=== PATIENT | male | born 1980 | race Caucasian/White ===

== ENCOUNTER 2021-04-30 09:22 | Emergency (ER) | payer OTHER, SELFPAY ==
[2021-04-30 09:35] VITALS: BP 146/89; PULSE 73; RESP 16; TEMP 36.6; O2SAT 98; BMI 35.2
--- NOTE | 2021-04-30 09:56 | XR_ITS ---
WS: [id number] PORTABLE CHEST HISTORY: chest pain COMPARISON: 02/20/2017 Lungs are clear and well expanded. No pleural effusion or pneumothorax. Cardiac size: Normal. Mediastinum/Aorta: Normal mediastinum. No osseous abnormality seen. XR/XR chest 1V portable [id number] IMPRESSION: Unremarkable portable chest.
--- NOTE | 2021-04-30 09:57 | ECG_ITS ---
[facility] Test Date: 2021-04-30 Pat Name: Esvin Baires Department: Room: Gender: Male Gas Prover: : 1980 Requested By: Ricardo Kim Order Number: [id number] Stefany MD: Shay Ruvalcaba M.D. Measurements Intervals [place] Rate: 72 P: 44 SD: 171 QRS: 54 QRSD: 90 T: 33 QT: 376 QTc: 414 Interpretive Statements SINUS RHYTHM No previous ECG available for comparison Electronically Signed On 04-30-2021 14:23:49 CDT by Shay Ruvalcaba M.D. [id number]
--- NOTE | 2021-04-30 10:03 | CT_ITS ---
WS: [id number] CT CHEST ANGIOGRAPHY WITH REFORMATS HISTORY: Chest pain and dyspnea for 3 days. TECHNIQUE: Contiguous axial images are obtained through the chest during arterial injection of intrav enous contrast. Images are reconstructed to evaluate the pulmonary arteries. MIP imaging also reviewe d. All CT scans at [facility] use at least one of these dose optimization techniques: automat ed exposure control; mA and/or kV adjustment per patient size (includes targeted exams where dose is matched to clinical indication); or iterative reconstruction. CONTRAST: Omnipaque 300; 78 mL IV. DLP: 615.51 mGy.cm COMPARISON: None available. Limited opacification of the pulmonary arteries. Streak artifact through the pulmonary arteries but n o filling defects are apparent. No RIGHT heart strain or pulmonary enlargement. Normal aorta. Normal size heart. No pericardial or pleural effusions. No adenopathy. No pneumonia or nodules. No chest wall abnormalities. No hiatal hernia. Hepatic steatosis. The entire liver is not included. N o adrenal mass. Cholelithiasis without evidence for acute cholecystitis. No bone destruction. CT/CT angio chest PE protcl [id number] IMPRESSION: 1. No pulmonary embolism. 2. No RIGHT heart strain. 3. Cholelithiasis without acute cholecystitis or bile duct dilatation. 4. No pneumonia.
--- NOTE | 2021-04-30 10:03 | USCV_ITS ---
Dequan, Esvin Age: 40 Gender: M : 1980 Exam Date: 04/30/2021 10:48 Ordering Phys: Ricardo Esparza DO Technologist: Exam Location: [facility] [place] Indication: LEG PAIN,, CHEST PAIN PROCEDURES: On the left side, the common femoral, superficial femoral, profunda femoral, popliteal, posterior tibial, greater saphenous veins, and the peroneal trunk were identified and interrogated in the standard fashion. FINDINGS: Normal 2-D Doppler and augmentation and compressibility throughout the left lower extremity venous structures. Additional imaging through the proximal calf veins also reveals no thrombus. Limited evaluation of the greater saphenous vein is patent with no thrombus. CONCLUSIONS No DVT left lower extremity. Dr. Marry Thompson DO (Electronically Signed) Final Date: 30 April 2021 11:58 S
--- NOTE | 2021-04-30 10:04 | W.ED.CHESTPA ---
HPI - Chest Pain General: Chief Complaint: Chest Pain Stated Complaint: SOB Time Seen by Provider: 04/30/21 09:27 History of Present Illness: HPI narrative: 40-year-old male presents emergency room complaining of intermittent shortness of breath chest pain and diaphoresis last several days occurs when he exerts himself when he rests its better. He is also noticed some increasing swelling will the last few days as well in his left lower leg which is also new for him. 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 He denies any history heart disease or diabetes. He is not had any fever sweats chills or any other symptoms. MD complaint: chest pain Onset (ago): day(s) Timing of current episode: constant Prior episodes: No Onset: during exertion Pain location: substernal Severity: mild Relieving factors: rest Exacerbating factors: exertion Context: recent immobilization and recent travel Associated symptoms: Reports diaphoresis, dyspnea and leg edema; Deny abdominal pain, fever(s), nausea, palpitations, sense of impending doom, syncope or vomiting Treatment prior to arrival: none Review of Systems Const: Reports: diaphoresis; Denies: fever(s) ENMT: Denies: throat pain, ear or mastoid pain, nasal discharge or nasal congestion Card: Denies: palpitations or syncope Resp: Reports: dyspnea GI: Denies: abdominal pain, nausea or vomiting : Denies: flank pain, dysuria, urinary frequency or urinary urgency Skin/Breast: Denies: rash or pruritus PFS ED PFSH: Social History Smoking and tobacco status: current every day smoker Physical Exam Const: COMMON NORMALS: no acute distress GENERAL APPEARANCE: cooperative and comfortable ORIENTATION/CONSCIOUSNESS: Yes awake, Yes oriented to person, Yes oriented to place and Yes oriented to time HENMT: COMMON NORMALS: normocephalic, atraumatic and hearing grossly normal bilaterally HEAD & SCALP: normocephalic and atraumatic Neck/C-Spine: COMMON NORMALS: no JVD Resp: COMMON NORMALS: normal respiratory effort, No retractions, No use of accessory muscles and clear to auscultation bilaterally AUSCULTATION: clear to auscultation bilaterally Cardio: COMMON NORMALS: no JVD, regular rate, regular rhythm and No murmurs present (Cardio) RATE: regular rate RHYTHM: regular rhythm GI: COMMON NORMALS: Soft to palpation and No hepatosplenomegaly present AUSCULTATION: Yes normoactive bowel sounds PALPATION: Yes Soft to palpation, No Tenderness to palpation present (GI), No Guarding due to palpation present (GI) and Yes No hepatosplenomegaly present Extremity: COMMON NORMALS: normal to inspection, capillary refill normal, no clubbing, cyanosis or edema, no calf tenderness and no pedal edema Neuro: SENSORIUM/ORIENTATION: Yes oriented to person, Yes oriented to place and Yes oriented to time Skin: COMMON NORMALS: no rashes or lesions noted GENERAL SKIN EXAM: no rashes or lesions noted Course Vital Signs: Vital signs: Vital Signs Temperature 97.8 F 04/30/21 09:35 Pulse Rate 87 04/30/21 14:09 Respiratory Rate 13 04/30/21 14:09 Blood Pressure 106/66 04/30/21 13:53 Pulse Oximetry 98 04/30/21 13:53 MDM - Chest Pain MDM Narrative: Medical decision making narrative: Labs imaging and EKG reviewed on the chart. Nothing acute nothing acute on the EKG or on his troponins will discharge home make arrangements for an outpatient stress test. Lab Data: Labs: Lab Results 04/30/21 04/30/21 04/30/21 10:35 10:35 10:35 WBC 9.5 10^3/uL 10^3/ uL (4.0-10.0) RBC 4.85 10^6/uL 10^6 /uL (4.1-5.3) Hgb 14.8 g/dL g/dL (11.7-16.6) Hct 45.1 % % (42.0-52.0) MCV 93.0 fl fl (80-94) MCH 30.5 pg pg (28.0-34.0) MCHC 32.8 g/dL g/dL (30.0-36.0) RDW 14.6 % % (12.1-15.1) Plt Count 163 10^3/cmm 10^3 /cmm (130-400) MPV 13.8 fL H fL (7.4-10.4) Neut % (Auto) 63.2 % % Lymph % (Auto) 26.1 % % [place] % (Auto) 8.0 % % Eos % (Auto) 1.9 % % Baso % (Auto) 0.4 % % Neut # (Auto) 5.96 10^3/uL 10^3 /uL (1.8-7.7) Lymph # (Auto) 2.5 10^3/uL 10^3/ uL (0.8-4.8) [place] # (Auto) 0.8 10^3/uL 10^3/ uL (0.2-0.9) Eos # (Auto) 0.2 10^3/uL 10^3/ uL (0.0-0.8) Baso # (Auto) 0.0 10^3/uL 10^3/ uL (0.0-0.1) Nucleated RBC % (a uto) 0 % % Nucleated RBCs # 0.0 /100WBC /100W BC Sodium 143 mmol/L mmol/L (136-145) Potassium 4.5 mmol/L mmol/L (3.5-5.1) Chloride 109 mmol/L H mmol /L (98-107) Carbon Dioxide 27 mmol/L mmol/L (22-29) Anion Gap 11.5 (5-19) BUN 10 mg/dL mg/dL (6-20) Creatinine 0.7 mg/dL mg/dL (0.7-1.2) GFR Calculation 123.7 mL/min mL/m in (90-130) Glucose 89 mg/dL mg/dL (65-115) Calculated Osmolal ity 295 mOsm/kg mOsm/ kg (285-295) Calcium 8.9 mg/dL mg/dL (8.5-10.5) Total Bilirubin 0.2 mg/dL mg/dL (0.15-1.2) AST 14 U/L U/L (0-40) ALT 17 U/L U/L (0-41) Alkaline Phosphata se 60 IU/L IU/L (40-130) Troponin T Baselin e 8 ng/L ng/L (0-15) Troponin T 120 [place] Troponin T Total Protein 6.6 g/dL g/dL (6.6-8.7) Albumin 4.0 g/dL g/dL (3.5-5.2) Globulin 2.6 g/dL g/dL (1.3-4.6) 04/30/21 11:52 WBC RBC Hgb Hct MCV MCH MCHC RDW Plt Count MPV Neut % (Auto) Lymph % (Auto) [place] % (Auto) Eos % (Auto) Baso % (Auto) Neut # (Auto) Lymph # (Auto) [place] # (Auto) Eos # (Auto) Baso # (Auto) Nucleated RBC % (a uto) Nucleated RBCs # Sodium Potassium Chloride Carbon Dioxide Anion Gap BUN Creatinine GFR Calculation Glucose Calculated Osmolal ity Calcium Total Bilirubin AST ALT Alkaline Phosphata se Troponin T Baselin e Troponin T 120 [address] [place] 8.15 ng/L ng/L (0-15) Delta Troponin T 0.15 ABS# ABS# (0-10) Total Protein Albumin Globulin Discharge Plan Discharge Patient Disposition: Home Clinical Impression: Atypical chest pain Condition: Stable Prescriptions: New aspirin 81 mg tablet,delayed release (DR/EC) 81 mg PO DAILY Qty: 30 RF: 0 No Action albuterol sulfate [Ventolin HFA] 90 mcg/actuation HFA aerosol inhaler 2 puff inhalation QID PRN (Reason: shortness of breath or wheezing) Qty: 8.5 RF: 0 azithromycin 250 mg tablet See Rx Instructions PO .COMPLEX PRN (Reason: bronchitis) Qty: 6 RF: 0 Discharge Orders: Discharge ED (Routine); Ordered 04/30/21 Ordered By: Ricardo Esparza Referrals: Moe Castañeda DO [Primary Care Provider] - Discharge Diet: Usual diet Discharge Activity: Resume usual activity Patient Instructions: Opioid Safety Coding Level of Care Code ED Alterations Workroom Clerk for Chg Fwd Exam Comprehensive
[2021-04-30] MEDS: iohexol 350 mg/mL 100 mL Btl IV (10:34)
[2021-04-30 10:48] LABS: Basophils % 0.4 %; Eosinophils # 0.2 10^3/uL (0.0-0.8); Eosinophils % 1.9 %; Hematocrit 45.1 % (42.0-52.0); Hemoglobin 14.8 g/dL (11.7-16.6); Lymphocytes # 2.5 10^3/uL (0.8-4.8); Lymphocytes % 26.1 %; Mean Corpuscular HGB Conc 32.8 g/dL (30.0-36.0); Mean Corpuscular Hemoglobin 30.5 pg (28.0-34.0); Mean Platelet Volume 13.8 fL (7.4-10.4); Monocytes # 0.8 10^3/uL (0.2-0.9); Neutrophils # 5.96 10^3/uL (1.8-7.7); Neutrophils % 63.2 %; Nucleated Red Blood Cells % 0 %; Platelet Count 163 10^3/cmm (130-400); Red Blood Count 4.85 10^6/uL (4.1-5.3); Red Cell Distribution Width 14.6 % (12.1-15.1); White Blood Count 9.5 10^3/uL (4.0-10.0)
[2021-04-30 11:19] LABS: Troponin(5th) Baseline 8 ng/L (0-15)
[2021-04-30 11:20] LABS: Alanine Aminotransferase 17 U/L (0-41); Alkaline Phosphatase 60 IU/L (40-130); Anion Gap 11.5 (5-19); Aspartate Amino Transferase 14 U/L (0-40); Blood Urea Nitrogen 10 mg/dL (6-20); Calcium 8.9 mg/dL (8.5-10.5); Carbon Dioxide 27 mmol/L (22-29); Chloride 109 mmol/L (98-107); Globulin 2.6 g/dL (1.3-4.6); Glomerular Filtration Rate 123.7 mL/min (90-130); Glucose 89 mg/dL (65-115); Osmolality Calculated 295 mOsm/kg (285-295); Potassium 4.5 mmol/L (3.5-5.1); Sodium 143 mmol/L (136-145); Total Bilirubin 0.2 mg/dL (0.15-1.2); Total Protein 6.6 g/dL (6.6-8.7)
[2021-04-30 11:57] VITALS: BP 132/87; PULSE 63; O2SAT 96
--- NOTE | 2021-04-30 11:58 | PC.NURSE ---
PATIENT CONNECTED TO CARDIAC MONITORING PER PROTOCOL.
[2021-04-30 12:52] LABS: Troponin 5 2HR 8.15 ng/L (0-15); Troponin 5 2HR Delta 0.15 ABS# (0-10)
[2021-04-30 13:00] VITALS: BP 120/85; PULSE 59; RESP 13; O2SAT 97
[2021-04-30 13:53] VITALS: BP 106/66; PULSE 74; RESP 17; O2SAT 98
[2021-04-30 14:09] VITALS: PULSE 87; RESP 13
--- NOTE | 2021-05-08 12:18 | DCPLANNER ---
Addendum entered by Estelita Oro 05/08/21 14:11: Patients called director of casework department asking about the stress test. plant hr manager explained to the that the order for the stress test will be faxed to centralized scheduling, and that centralized scheduling will call patient to schedule the stress test. plant hr manager asked if patient had a primary care physician, was told that the would like patient to be seen by Dr. Wilkinson at [facility]. plant hr manager called [facility], spoke with Omaira, was told that an appointment can not be scheduled at this time, due to patient no showing earlier in the year. plant hr manager called patients and informed her that the stress test had been faxed to centralized scheduling, and that she would need to call and schedule the appointment with Dr. Wilkinson. Original Note: plant hr manager had message to schedule an outpatient stress test for patient. plant hr manager faxed signed order for stress test to centralized scheduling, who will call patient with appointment information.
--- NOTE | 2021-05-31 14:42 | DCPLANNER ---
Patients stress test was cancelled due to not being able to get authorization with insurance.
== END 2021-04-30 14:04 | disposition home or self-care (01) ==
PROVIDERS: Emergency Provider Family Medicine; PCP Internal Medicine
DX: R07.89 Other chest pain (principal); F17.210 Nicotine dependence, cigarettes, uncomplicated
CPT/HCPCS: 71045; 71275; 80053; 84484; 85025; 93005; 93971; 99284; Q9967

== ENCOUNTER 2023-05-15 08:10 | Emergency (ER) | payer OTHER, SELFPAY ==
--- NOTE | 2023-05-15 08:12 | ECG_ITS ---
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 Measurements Intervals [place] Rate: 74 P: 38 MN: 168 QRS: 48 QRSD: 90 T: 18 QT: 364 QTc: 404 Interpretive Statements SINUS RHYTHM Compared to ECG 04/30/2021 09:34:40 No significant changes Electronically Signed On 05-15-2023 11:31:16 CDT by Candy Gonzalez M.D. [id number] f
[2023-05-15 08:13] VITALS: BP 154/91; PULSE 75; RESP 15; TEMP 36.8; O2SAT 94
--- NOTE | 2023-05-15 08:20 | W.ED.CHESTPA ---
HPI - Chest Pain General: Chief Complaint: Chest Pain Stated Complaint: chest pain, sob Time Seen by Provider: 05/15/23 08:17 Source: patient Mode of arrival: ambulatory History of Present Illness: 42-year-old male who presents emergency room complaining of shortness of breath and intermittent chest pain he has had this for several weeks really get episodes about once a week will get short of breath some pain in his left shoulder. He has had rotator cuff problems as well. No associated nausea or vomiting. He has not really noticed anything that exacerbates or relieves it. No known history of coronary artery disease he does have a history of hypertension he is been prescribed medications but he has not been taking them. Patient is not diabetic, he does smoke marijuana regularly denies use of tobacco products. Symptoms worse this morning than his previous episodes. MD complaint: chest pain Onset (ago): week(s) Timing of current episode: episodic Onset: during rest Pain location: left chest Pain radiation: left arm and left shoulder Quality: aching and heaviness Relieving factors: nothing Exacerbating factors: nothing Associated symptoms: Reports dyspnea; Deny abdominal pain, diaphoresis, fever(s), leg edema, nausea, palpitations, sense of impending doom, syncope or vomiting Treatment prior to arrival: none Review of Systems Const: Denies: fever(s) or diaphoresis Card: Denies: palpitations or syncope Resp: Reports: dyspnea GI: Denies: abdominal pain, nausea or vomiting : Denies: dysuria, urinary frequency or urinary urgency Musc: Denies: neck pain or back pain Skin/Breast: Denies: rash PFSH ED PFSH: Social History Smoking and tobacco/nicotine status: current every day tobacco/nicotine user Physical Exam Const: COMMON NORMALS: no acute distress GENERAL APPEARANCE: cooperative and comfortable ORIENTATION/CONSCIOUSNESS: Yes awake, Yes oriented to person, Yes oriented to place and Yes oriented to time HENMT: COMMON NORMALS: normocephalic, atraumatic and hearing grossly normal bilaterally HEAD & SCALP: normocephalic and atraumatic Resp: COMMON NORMALS: normal respiratory effort, No retractions, No use of accessory muscles and clear to auscultation bilaterally AUSCULTATION: clear to auscultation bilaterally Cardio: COMMON NORMALS: regular rate, regular rhythm and No murmurs present (Cardio) RATE: regular rate RHYTHM: regular rhythm GI: COMMON NORMALS: Soft to palpation and No hepatosplenomegaly present AUSCULTATION: Yes normoactive bowel sounds PALPATION: Yes Soft to palpation, No Tenderness to palpation present (GI), No Guarding due to palpation present (GI) and Yes No hepatosplenomegaly present Extremity: COMMON NORMALS: normal to inspection, capillary refill normal, no clubbing, cyanosis or edema, no calf tenderness and no pedal edema Neuro: SENSORIUM/ORIENTATION: Yes oriented to person, Yes oriented to place and Yes oriented to time Skin: COMMON NORMALS: no rashes or lesions noted GENERAL SKIN EXAM: no rashes or lesions noted Course Vital Signs: Vital signs: Vital Signs Temperature 98.2 F 05/15/23 08:13 Pulse Rate 79 05/15/23 11:28 Respiratory Rate 16 05/15/23 11:28 Blood Pressure 145/116 05/15/23 11:28 Pulse Oximetry 98 05/15/23 11:28 Oxygen Delivery Me thod Room Air 05/15/23 09:28 MDM - Chest Pain Medical Decision Making EKGs labs are unremarkable no acute ST elevation. Cardiac enzymes negative. Patient reports he does use a lot of Tums he also takes probiotics trying to avoid stomach upset. We will have patient's start pantoprazole daily. Set up outpatient stress test. Follow-up with primary care. Medical Records I reviewed the patient's medical records. Lab Data I reviewed the patient's lab results. 05/15/23 08:32 05/15/23 08:32 Laboratory Results WBC 9.38 10^3/uL (3.29-11.43) 05/15/23 08:32 RBC 4.84 10^6/uL (3.85-5.65) 05/15/23 08:32 Hgb 14.40 g/dL (11.27-16.99) 05/15/23 08:32 Hct 44.0 % (37-53) 05/15/23 08:32 MCV 90.9 fl (82-101) 05/15/23 08:32 MCH 29.8 pg (27-33) 05/15/23 08:32 MCHC 32.7 g/dL (30-55) 05/15/23 08:32 RDW 13.5 % (12.1-15.1) 05/15/23 08:32 Plt Count 155 10^3/cmm (157-399) L 05/15/23 08:32 MPV 12.7 fL (7.4-10.4) H 05/15/23 08:32 Neut % (Auto) 67.0 % 05/15/23 08:32 Lymph % (Auto) 23.3 % 05/15/23 08:32 [place] % (Auto) 7.7 % 05/15/23 08:32 Eos % (Auto) 1.2 % 05/15/23 08:32 Baso % (Auto) 0.4 % 05/15/23 08:32 Neut # (Auto) 6.28 10^3/uL (1.8-7.7) 05/15/23 08:32 Lymph # (Auto) 2.2 10^3/uL (0.8-4.8) 05/15/23 08:32 [place] # (Auto) 0.7 10^3/uL (0.2-0.9) 05/15/23 08:32 Eos # (Auto) 0.1 10^3/uL (0.0-0.8) 05/15/23 08:32 Baso # (Auto) 0.0 10^3/uL (0.0-0.1) 05/15/23 08:32 Nucleated RBC % (auto) 0 % 05/15/23 08:32 Nucleated RBCs # 0.0 /100WBC 05/15/23 08:32 Sodium 137 mmol/L (136-145) 05/15/23 08:32 Potassium 4.2 mmol/L (3.5-5.1) 05/15/23 08:32 Chloride 104 mmol/L (98-107) 05/15/23 08:32 Carbon Dioxide 24 mmol/L (22-29) 05/15/23 08:32 Anion Gap 13.2 (5-19) 05/15/23 08:32 BUN 14 mg/dL (6-20) 05/15/23 08:32 Creatinine 0.8 mg/dL (0.7-1.2) 05/15/23 08:32 GFR Calculation 105.0 mL/min (90-130) 05/15/23 08:32 Glucose 110 mg/dL (65-115) 05/15/23 08:32 Calculated Osmolality 285 mOsm/kg (285-295) 05/15/23 08:32 Calcium 9.4 mg/dL (8.5-10.5) 05/15/23 08:32 Total Bilirubin 0.4 mg/dL (0.15-1.2) 05/15/23 08:32 AST 16 U/L (0-40) 05/15/23 08:32 ALT 23 U/L (0-41) 05/15/23 08:32 Alkaline Phosphatase 63 U/L (40-130) 05/15/23 08:32 Troponin T Baseline 9 ng/L (0-15) 05/15/23 08:32 Troponin T 120 Minute 8.65 ng/L (0-15) 05/15/23 10:29 Delta Troponin T -0.35 ABS# (0-10) L 05/15/23 10:29 Total Protein 6.6 g/dL (6.6-8.7) 05/15/23 08:32 Albumin 4.4 g/dL (3.5-5.2) 05/15/23 08:32 Globulin 2.2 g/dL (1.3-4.6) 05/15/23 08:32 All radiology interpretation(s) finalized by discharge Discharge Plan Discharge Patient Disposition: Home Clinical Impression: Atypical chest pain Condition: Stable Prescriptions: New pantoprazole 40 mg tablet,delayed release (DR/EC) 40 mg PO DAILY Qty: 30 0RF aspirin 81 mg tablet,delayed release (DR/EC) 81 mg PO DAILY Qty: 30 0RF No Action propranolol 10 mg tablet 10 mg PO BID Discharge Orders: Discharge ED (Routine); Ordered 05/15/23 Ordered By: Ricardo Esparza Referrals: Nelson Wilkinson MD [Primary Care Provider] - Discharge Diet: Usual diet Discharge Activity: Resume usual activity Patient Instructions: Opioid Safety, Pain Management Activity Restrictions/Additional Instructions: Thank you for choosing [facility] for your healthcare needs today. Please realize this is an emergency room and that we are providing you with a medical screening exam and this may not be complete and all inclusive of all the testing and or work up that you may need to determine your ailment or severity of your illness. It is very important that you follow up as instructed or that you return to the Emergency Department should you have concerns or if your condition changes or worsens in any way. You are seen today for chest pain. Your cardiac enzymes and EKG were unremarkable. Recommend that he start pantoprazole 40 mg daily manager of employee relations will make arrangements for an outpatient stress test. Also start enteric-coated baby aspirin daily. Coding Level of Care Code ED Clinical Review Nurse for Tj Carranza
--- NOTE | 2023-05-15 08:21 | XR_ITS ---
WS: [id number] Exam: XR chest 1V portable [id number] Date/Time of Exam: 05/15/2023 8:21 AM Reason For Exam: chest pain Comparison 04/30/2021. Findings: The lungs are clear and fully expanded. Costophrenic angles are sharp. No infiltrates. Bronchovascula r relief appears normal. Cardiac silhouette is unremarkable. Bony elements are intact. IMPRESSION: Unremarkable chest radiograph.
--- NOTE | 2023-05-15 08:54 | PC.NURSE ---
This nurse is unable to assume care for this patient as I am with a more critical patient. Charge nurse informed.
[2023-05-15 08:56] LABS: Basophils % 0.4 %; Eosinophils # 0.1 10^3/uL (0.0-0.8); Eosinophils % 1.2 %; Lymphocytes # 2.2 10^3/uL (0.8-4.8); Lymphocytes % 23.3 %; Mean Corpuscular HGB Conc 32.7 g/dL (30-55); Mean Corpuscular Hemoglobin 29.8 pg (27-33); Mean Corpuscular Volume 90.9 fl (82-101); Mean Platelet Volume 12.7 fL (7.4-10.4); Monocytes # 0.7 10^3/uL (0.2-0.9); Monocytes % 7.7 %; Neutrophils # 6.28 10^3/uL (1.8-7.7); Nucleated Red Blood Cells % 0 %; Platelet Count 155 10^3/cmm (157-399); Red Blood Count 4.84 10^6/uL (3.85-5.65); Red Cell Distribution Width 13.5 % (12.1-15.1); White Blood Count 9.38 10^3/uL (3.29-11.43)
[2023-05-15] MEDS: aspirin 81 mg Chew Tablet 324 MG PO (09:15)
[2023-05-15 09:16] LABS: Alanine Aminotransferase 23 U/L (0-41); Albumin Level 4.4 g/dL (3.5-5.2); Alkaline Phosphatase 63 U/L (40-130); Anion Gap 13.2 (5-19); Aspartate Amino Transferase 16 U/L (0-40); Blood Urea Nitrogen 14 mg/dL (6-20); Calcium 9.4 mg/dL (8.5-10.5); Carbon Dioxide 24 mmol/L (22-29); Chloride 104 mmol/L (98-107); Globulin 2.2 g/dL (1.3-4.6); Glucose 110 mg/dL (65-115); Osmolality Calculated 285 mOsm/kg (285-295); Potassium 4.2 mmol/L (3.5-5.1); Sodium 137 mmol/L (136-145); Total Bilirubin 0.4 mg/dL (0.15-1.2); Total Protein 6.6 g/dL (6.6-8.7)
[2023-05-15 09:17] LABS: Troponin(5th) Baseline 9 ng/L (0-15)
[2023-05-15 09:21] VITALS: BP 136/95; PULSE 70; RESP 18; O2SAT 94
[2023-05-15 09:28] VITALS: O2SAT 96
--- NOTE | 2023-05-15 10:23 | ECG_ITS ---
[facility] Test Date: 2023-05-15 Pat Name: Esvin Baires Department: Room: Gender: Male Dependency Director: : 1980 Requested By: Ricardo Kim Order Number: [id number] Stefany MD: Candy Gonzalez M.D. Measurements Intervals [place] Rate: 71 P: 29 OR: 173 QRS: 44 QRSD: 89 T: 15 QT: 376 QTc: 410 Interpretive Statements SINUS RHYTHM LOW QRS VOLTAGE IN PRECORDIAL LEADS [QRS DEFLECTION < 1.0 mV IN CHEST LEADS] Compared to ECG 05/15/2023 08:12:53 Low QRS voltage now present Electronically Signed On 05-15-2023 11:32:28 CDT by Candy Gonzalez M.D. [id number]
[2023-05-15 11:05] LABS: Troponin 5 2HR 8.65 ng/L (0-15); Troponin 5 2HR Delta -0.35 ABS# (0-10)
[2023-05-15 11:11] VITALS: BP 144/103; PULSE 71; RESP 18; O2SAT 93
[2023-05-15 11:28] VITALS: BP 145/116; PULSE 79; RESP 16; O2SAT 98
== END 2023-05-15 11:28 | disposition home or self-care (01) ==
PROVIDERS: Emergency Provider Family Medicine; PCP Family Medicine
DX: R07.89 Other chest pain (principal); Z72.0 Tobacco use
CPT/HCPCS: 36415; 71045; 80053; 84484; 85025; 93005; 99285

== ENCOUNTER → 2023-05-16 09:26 | Outpatient (BNVA) | payer OTHER, SELFPAY | PROVIDERS: PCP Family Medicine; Visit Provider Family Medicine | DX: R73.09 Other abnormal glucose (principal); Z13.220 Encounter for screening for lipoid disorders; R07.89 Other chest pain | CPT/HCPCS: 80061; 83036 ==

== ENCOUNTER 2023-05-23 12:32 | Outpatient (CLI) | payer OTHER, SELFPAY ==
[2023-05-23 12:47] VITALS: BMI 35.9
--- NOTE | 2023-05-23 13:00 | ECG_ITS ---
[facility] Test Date: 2023-05-23 Pat Name: Esvin Baires Department: Room: Gender: Male Hospital Director: Nikko Hart : 1980 Requested By: Ricardo Kim Order Number: [id number] Stefany MD: Shay Ruvalcaba M.D. Interpretive Statements NAME OF STUDY: TREADMILL STRESS TEST INDICATION: [Chest Pain, ] EXERCISE DATA: The patient was exercised by James protocol. Baseline heart rate was 89 beats per minute. Baseline blood pressure was 119/76 millimeters of mercury. Target heart rate was 150 beats per minute. Maximum heart rate achieved was 152, which was 101% of the target heart rate. Maximum blood pressure was 191/80 millimeters of mercury. Total exercise time was 7 minutes 25 seconds. Maximum METs achieved was 10.2. The reason for ending the test was maximal effort achieved. The patient complained of shortness of breath during the stress test, which then resolved at the end of the test. ELECTROCARDIOGRAM: BASELINE: Showed sinus rhythm, normal axis, no significant ST-T changes at the baseline noted. [] EXERCISE: At the peak exercise level, [] No significant ST-T changes suggestive of ischemia noted. [] RECOVERY: During the recovery period, heart rate dropped appropriately. No significant ST-T changes in the recovery suggestive of ischemia noted. [] CONCLUSION: 1. Exercise capacity is good. 2. Heart rate response was appropriate 3. Blood pressure response was appropriate 4. Symptoms not suggestive of ischemia. 5. Exercise stress test is not suggestive of ischemia. Electronically Signed On 05-24-2023 20:59:01 CDT by Shay Ruvalcaba M.D. [id number]
[2023-05-23 13:38] VITALS: BP 120/78; PULSE 95
== END 2023-05-23 12:33 | disposition home or self-care (01) ==
LOC: CDL 12:34
PROVIDERS: PCP Family Medicine; Visit Provider Family Medicine
DX: R07.89 Other chest pain (principal)
CPT/HCPCS: 93017

== ENCOUNTER 2023-05-27 11:26 | Emergency (ER) | payer OTHER, SELFPAY ==
--- NOTE | 2023-05-27 | XR_ITS ---
WS: [id number] Portable AP upright chest, 05/27/2023 Clinical Data: CHEST PAIN Comparison: Portable chest, 05/15/2023 Findings: No nodules, masses or effusions are seen. The heart is normal. The pulmonary vascularity is not increased. No pneumonia or pneumothorax is seen. Impression: Negative chest.
--- NOTE | 2023-05-27 11:27 | ECG_ITS ---
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 Measurements Intervals [place] Rate: 80 P: 38 [place]: 164 QRS: 59 QRSD: 89 T: 22 QT: 369 QTc: 428 Interpretive Statements SINUS RHYTHM Compared to ECG 05/15/2023 10:23:34 No significant changes Electronically Signed On 05-27-2023 14:09:02 LOCK MASTER by Shay Ruvalcaba M.D. [id number]
[2023-05-27 11:35] VITALS: BP 112/77; PULSE 77; RESP 16; TEMP 36.5; O2SAT 94; BMI 35.9
[2023-05-27 11:56] LABS: Basophils % 0.4 %; Eosinophils # 0.1 10^3/uL (0.0-0.8); Eosinophils % 0.5 %; Hematocrit 44.3 % (37-53); Lymphocytes # 2.5 10^3/uL (0.8-4.8); Lymphocytes % 25.5 %; Mean Corpuscular HGB Conc 33.4 g/dL (30-55); Mean Corpuscular Volume 89.9 fl (82-101); Mean Platelet Volume 12.4 fL (7.4-10.4); Monocytes # 0.7 10^3/uL (0.2-0.9); Monocytes % 6.6 %; Neutrophils # 6.53 10^3/uL (1.8-7.7); Neutrophils % 66.4 %; Nucleated Red Blood Cells % 0 %; Platelet Count 178 10^3/cmm (157-399); Red Blood Count 4.93 10^6/uL (3.85-5.65); Red Cell Distribution Width 13.5 % (12.1-15.1); White Blood Count 9.84 10^3/uL (3.29-11.43)
[2023-05-27 12:16] LABS: Troponin(5th) Baseline 8 ng/L (0-15)
--- NOTE | 2023-05-27 12:20 | ED_ITS ---
HPI - Chest Pain General: Chief Complaint: Chest Pain Stated Complaint: chest pain, sob Time Seen by Provider: 05/27/23 12:19 Source: patient Mode of arrival: ambulatory History of Present Illness: 42-year-old male who presents emergency room with complaints of chest discomfort. Has been to the emergency room several times for this. Had done work-ups which were negative he had a stress test 3 days ago which was negative as well. He after we see him once we did start him on pantoprazole he also had his blood pressure follow-up with his primary care doctor and has been been taking lisinopril for that. Chest pain began while at rest is in the right upper chest he has not been short of breath with that. No leg swelling. No hypoxia no tachycardia. MD complaint: chest pain Onset (ago): day(s) Timing of current episode: episodic Prior episodes: Yes Onset: during rest Pain location: right chest Quality: aching and heaviness Relieving factors: nothing Exacerbating factors: nothing Associated symptoms: Deny abdominal pain, diaphoresis, dyspnea, fever(s), leg edema, nausea, palpitations, sense of impending doom, syncope or vomiting Treatment prior to arrival: none Review of Systems Const: Denies: fever(s), chills or diaphoresis Card: Denies: chest pain, palpitations or syncope Resp: Denies: dyspnea GI: Denies: abdominal pain, nausea or vomiting : Denies: dysuria, urinary frequency or urinary urgency Musc: Denies: neck pain or back pain Skin/Breast: Denies: rash PFS ED PFSH: Surgical History (Updated 05/26/23 @ 20:04 by Nelson Wilkinson MD) No pertinent past surgical history Social History (Updated 05/26/23 @ 20:04 by Nelson Wilkinson MD) Smoking and tobacco/nicotine status: current every day tobacco/nicotine user Additional social history: Found out he was adopted in his 40's. Physical Exam Const: COMMON NORMALS: no acute distress GENERAL APPEARANCE: cooperative and comfortable ORIENTATION/CONSCIOUSNESS: Yes awake, Yes oriented to person, Yes oriented to place and Yes oriented to time HENMT: COMMON NORMALS: normocephalic, atraumatic and hearing grossly normal bilaterally HEAD & SCALP: normocephalic and atraumatic Resp: COMMON NORMALS: normal respiratory effort, No retractions, No use of accessory muscles and clear to auscultation bilaterally AUSCULTATION: clear to auscultation bilaterally Cardio: COMMON NORMALS: regular rate, regular rhythm and No murmurs present (Cardio) RATE: regular rate RHYTHM: regular rhythm GI: COMMON NORMALS: Soft to palpation and No hepatosplenomegaly present AUSCULTATION: Yes normoactive bowel sounds PALPATION: Yes Soft to palpation, No Tenderness to palpation present (GI), No Guarding due to palpation present (GI) and Yes No hepatosplenomegaly present Extremity: COMMON NORMALS: normal to inspection, capillary refill normal, no clubbing, cyanosis or edema, no calf tenderness and no pedal edema Neuro: SENSORIUM/ORIENTATION: Yes oriented to person, Yes oriented to place and Yes oriented to time Skin: COMMON NORMALS: no rashes or lesions noted GENERAL SKIN EXAM: no rashes or lesions noted Course Vital Signs: Vital signs: Vital Signs Temperature 97.7 F 05/27/23 11:35 Pulse Rate 69 05/27/23 12:34 Respiratory Rate 18 05/27/23 12:34 Blood Pressure 112/77 05/27/23 11:35 Pulse Oximetry 94 05/27/23 12:34 Oxygen Delivery Me thod Room Air 05/27/23 12:34 MDM - Chest Pain Medical Decision Making Troponin EKG unremarkable. Patient is on a proton pump inhibitor which he said did improve his reflux. He has no signs of PE no signs of pneumonia or pneumothorax widened no widening mediastinum. He had a normal stress test 3 days ago. His symptoms are noncardiac in nature at this time. Discharge patient home have him follow-up with his primary care doctor Medical Records I reviewed the patient's medical records. Lab Data I reviewed the patient's lab results. 05/27/23 11:48 05/27/23 11:48 Laboratory Results WBC 9.84 10^3/uL (3.29-11.43) 05/27/23 11:48 RBC 4.93 10^6/uL (3.85-5.65) 05/27/23 11:48 Hgb 14.80 g/dL (11.27-16.99) 05/27/23 11:48 Hct 44.3 % (37-53) 05/27/23 11:48 MCV 89.9 fl (82-101) 05/27/23 11:48 MCH 30.0 pg (27-33) 05/27/23 11:48 MCHC 33.4 g/dL (30-55) 05/27/23 11:48 RDW 13.5 % (12.1-15.1) 05/27/23 11:48 Plt Count 178 10^3/cmm (157-399) 05/27/23 11:48 MPV 12.4 fL (7.4-10.4) H 05/27/23 11:48 Neut % (Auto) 66.4 % 05/27/23 11:48 Lymph % (Auto) 25.5 % 05/27/23 11:48 Mcdonald % (Auto) 6.6 % 05/27/23 11:48 Eos % (Auto) 0.5 % 05/27/23 11:48 Baso % (Auto) 0.4 % 05/27/23 11:48 Neut # (Auto) 6.53 10^3/uL (1.8-7.7) 05/27/23 11:48 Lymph # (Auto) 2.5 10^3/uL (0.8-4.8) 05/27/23 11:48 Mcdonald # (Auto) 0.7 10^3/uL (0.2-0.9) 05/27/23 11:48 Eos # (Auto) 0.1 10^3/uL (0.0-0.8) 05/27/23 11:48 Baso # (Auto) 0.0 10^3/uL (0.0-0.1) 05/27/23 11:48 Nucleated RBC % (auto) 0 % 05/27/23 11:48 Nucleated RBCs # 0.0 /100WBC 05/27/23 11:48 Sodium 141 mmol/L (136-145) 05/27/23 11:48 Potassium 3.9 mmol/L (3.5-5.1) 05/27/23 11:48 Chloride 106 mmol/L (98-107) 05/27/23 11:48 Carbon Dioxide 23 mmol/L (22-29) 05/27/23 11:48 Anion Gap 15.9 (5-19) 05/27/23 11:48 BUN 13 mg/dL (6-20) 05/27/23 11:48 Creatinine 0.8 mg/dL (0.7-1.2) 05/27/23 11:48 GFR Calculation 105.0 mL/min (90-130) 05/27/23 11:48 Glucose 101 mg/dL (65-115) 05/27/23 11:48 Calculated Osmolality 292 mOsm/kg (285-295) 05/27/23 11:48 Calcium 9.7 mg/dL (8.5-10.5) 05/27/23 11:48 Total Bilirubin 0.5 mg/dL (0.15-1.2) 05/27/23 11:48 AST 18 U/L (0-40) 05/27/23 11:48 ALT 25 U/L (0-41) 05/27/23 11:48 Alkaline Phosphatase 62 U/L (40-130) 05/27/23 11:48 Troponin T Baseline 8 ng/L (0-15) 05/27/23 11:48 NT-Pro-B Natriuret Pep 59 pg/mL (0-125) 05/27/23 11:48 Total Protein 7.1 g/dL (6.6-8.7) 05/27/23 11:48 Albumin 4.8 g/dL (3.5-5.2) 05/27/23 11:48 Globulin 2.3 g/dL (1.3-4.6) 05/27/23 11:48 All radiology interpretation(s) finalized by discharge Discharge Plan Discharge Patient Disposition: Home Clinical Impression: Atypical chest pain Condition: Stable Prescriptions: No Action alprazolam 0.25 mg tablet 0.25 mg PO DAILY PRN (Reason: anxiety) Qty: 30 0RF lisinopril 10 mg tablet 10 mg PO DAILY Qty: 30 3RF pantoprazole 40 mg tablet,delayed release (DR/EC) 40 mg PO DAILY Qty: 30 0RF aspirin 81 mg tablet,delayed release (DR/EC) 81 mg PO DAILY Qty: 30 0RF Discharge Orders: Discharge ED (Routine); Ordered 05/27/23 Ordered By: Ricardo Esparza Referrals: Nelson Wilkinson MD [Primary Care Provider] - Discharge Diet: Usual diet Discharge Activity: Resume usual activity Patient Instructions: Opioid Safety, Pain Management Activity Restrictions/Additional Instructions: Thank you for choosing [facility] for your healthcare needs today. Please realize this is an emergency room and that we are providing you with a medical screening exam and this may not be complete and all inclusive of all the testing and or work up that you may need to determine your ailment or severity of your illness. It is very important that you follow up as instructed or that you return to the Emergency Department should you have concerns or if your condition changes or worsens in any way. You were seen today with complaints of chest pain. Your chest x-ray was clear there is no sign of pulmonary embolism pneumonia or widening mediastinum. Vitals and symptoms are not suggestive of a PE he recently had a cardiac stress test that was negative your EKG and troponins here in the emergency room were negative as well. You should continue taking the pantoprazole follow-up with your primary care doctor for further evaluation if your symptoms persist. At this time there is no emergent condition present. Coding Level of Care Code ED Insole Coverer for Tj Carranza
[2023-05-27 12:29] LABS: Alanine Aminotransferase 25 U/L (0-41); Albumin Level 4.8 g/dL (3.5-5.2); Alkaline Phosphatase 62 U/L (40-130); Anion Gap 15.9 (5-19); Aspartate Amino Transferase 18 U/L (0-40); Blood Urea Nitrogen 13 mg/dL (6-20); Calcium 9.7 mg/dL (8.5-10.5); Carbon Dioxide 23 mmol/L (22-29); Chloride 106 mmol/L (98-107); Globulin 2.3 g/dL (1.3-4.6); Glucose 101 mg/dL (65-115); NT Pro B Type Natriuretic Pept 59 pg/mL (0-125); Osmolality Calculated 292 mOsm/kg (285-295); Potassium 3.9 mmol/L (3.5-5.1); Sodium 141 mmol/L (136-145); Total Bilirubin 0.5 mg/dL (0.15-1.2); Total Protein 7.1 g/dL (6.6-8.7)
[2023-05-27 12:34] VITALS: PULSE 69; RESP 18; O2SAT 94
== END 2023-05-27 13:32 | disposition home or self-care (01) ==
PROVIDERS: Emergency Medicine; Emergency Provider Family Medicine; PCP Family Medicine
DX: R07.89 Other chest pain (principal); Z79.82 Long term (current) use of aspirin; Z72.0 Tobacco use
CPT/HCPCS: 36415; 71045; 80053; 83880; 84484; 85025; 93005; 99285

== ENCOUNTER 2024-02-22 10:56 | Emergency (ER) | payer OTHER, SELFPAY ==
[2024-02-22 11:01] VITALS: PULSE 91; RESP 18; TEMP 36.6; O2SAT 98; BMI 35.2
[2024-02-22 11:08] VITALS: BP 108/87; PULSE 92; O2SAT 97
--- NOTE | 2024-02-22 11:10 | XRR_ITS ---
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 Views: 2 or more views. COMPARISON: CR XR chest 1V portable [id number] 05/27/2023 12:44 PM FINDINGS: Bones/joints: Normal. Soft tissues: Normal. XR/XR shoulder RT min 2V* [id number] IMPRESSION: No acute findings.
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
[2024-02-22] MEDS: triamcinolone 40 mg/mL SDV INJECTION (12:26)
[2024-02-22] MEDS: BUPivacaine 0.25% INJ 10 mL INJECTION (12:30)
--- NOTE | 2024-02-23 07:31 | DCPLANNER ---
message sent to ortho for er f/u
== END 2024-02-22 12:49 | disposition home or self-care (01) ==
PROVIDERS: Emergency Provider Emergency Medicine; PCP Family Medicine
DX: M25.511 Pain in right shoulder (principal); Z79.82 Long term (current) use of aspirin; I10 Essential (primary) hypertension; Z72.0 Tobacco use
CPT/HCPCS: 20610; 73030; 99284; J3301; J3490

== ENCOUNTER → 2024-03-12 10:00 | Outpatient (BNVA) | payer OTHER, SELFPAY | PROVIDERS: PCP Family Medicine; Referring Provider Emergency Medicine; Visit Provider Nurse Practitioner | DX: M25.511 Pain in right shoulder (principal) | CPT/HCPCS: 73030 ==

== ENCOUNTER 2024-10-26 07:44 | Emergency (ER) | payer OTHER, SELFPAY ==
[2024-10-26 08:04] VITALS: BP 127/88; PULSE 85; RESP 18; TEMP 36.7; O2SAT 95; BMI 35.2
--- NOTE | 2024-10-26 08:19 | PC.PHAR ---
Pt has a longer list of medications he no longer takes. Removed from chart are the following: Alprazolam 0.25mg [place] 81mg Celebrex 100mg Chlorzoxazone 500mg Cyclobenzaprine 10mg [place] 5-325 Protonix 40mg
--- NOTE | 2024-10-26 08:26 | ED_ITS ---
HPI - General Adult 2 General: Chief complaint: General Medical Stated complaint: bloody stool Time Seen by Provider: 10/26/24 07:58 History of Present Illness: 43-year-old male presents emergency room complaining of having bloody stool. He states he had it intermittently. He had a hemorrhoid that was inflamed it had gone down and now he has not had any recurrence. He has not had any large amounts of blood. He had a colonoscopy several years ago he had a single polyp removed is not had any problems since then. Associated symptoms: Deny chest pain, dyspnea or rash Related Data Home Medications ?Medication ?Instructions ?Recorded ?Confirmed hydrocodone 7.5 mg-acetaminophen 1 tab PO Q4H PRN Pain 10/26/24 10/26/24 325 mg tablet Previous Rx's ?Medication ?Instructions ?Recorded lisinopril 20 mg tablet 20 mg PO DAILY #30 tabs 01/11 triamcinolone acetonide 0.1 % 1 applic topical DAILY P RN itching 06/25/24 topical cream #30 grams Allergies Allergy/AdvReac Type Severity Reaction Status Date / Time No Known Allergies Allergy Verified 03/12/24 10:29 Review of Systems 2 Const: Denies: fever(s) or chills Card: Denies: chest pain Resp: Denies: dyspnea GI: Reports: hematochezia; Denies: abdominal pain : Denies: dysuria, urinary frequency or urinary urgency Musc: Denies: neck pain or back pain Skin/Breast: Denies: rash PFSH ED 2 PFSH: Medical History Tendinitis of right rotator cuff Cervical radiculopathy, chronic Trapezius muscle spasm Chronic right shoulder pain Positive Tinel's sign Anxiety Hypertension Surgical History No pertinent past surgical history Social History Smoking and tobacco/nicotine status: never used tobacco/nicotine Additional social history: Found out he was adopted in his 40's. Physical Exam 2 Const: COMMON NORMALS: no acute distress GENERAL APPEARANCE: cooperative ORIENTATION/CONSCIOUSNESS: Yes awake, Yes oriented to person, Yes oriented to place and Yes oriented to time HENMT: COMMON NORMALS: normocephalic, atraumatic and hearing grossly normal bilaterally HEAD & SCALP: normocephalic and atraumatic Resp: COMMON NORMALS: normal respiratory effort, No retractions, No use of accessory muscles and clear to auscultation bilaterally AUSCULTATION: clear to auscultation bilaterally Cardio: COMMON NORMALS: regular rate, regular rhythm and No murmurs present (Cardio) RATE: regular rate RHYTHM: regular rhythm GI: COMMON NORMALS: Soft to palpation and No hepatosplenomegaly present A USCULTATION: Yes normoactive bowel sounds PALPATION: Yes Soft to palpation, No Tenderness to palpation present (GI), No Guarding due to palpation present (GI) and Yes No hepatosplenomegaly present OTHER: Visual examination of the rectal area there are multiple hemorrhoidal tags no active bleeding no ulcerations or thrombosis Extremity: COMMON NORMALS: normal to inspection, capillary refill normal, no clubbing, cyanosis or edema, no calf tenderness and no pedal edema Neuro: SENSORIUM/ORIENTATION: Yes oriented to person, Yes oriented to place and Yes oriented to time Skin: COMMON NORMALS: no rashes or lesions noted GENERAL SKIN EXAM: no rashes or lesions noted Course 2 Vital Signs: Vital signs: Vital Signs Temperature 98.1 F 10/26/24 08:04 Pulse Rate 81 10/26/24 09:47 Respiratory Rate 18 10/26/24 08:04 Blood Pressure 126/90 10/26/24 09:47 Pulse Oximetry 96 10/26/24 09:47 Oxygen Delivery Me thod Room Air 10/26/24 08:04 MDM - General Adult Medical Decision Making No active bleeding at this time hemoglobin is stable. Will discharge patient home set him up to see general surgery given his history of previous colon polyp he should have another colonoscopy especially now with the report of rectal bleeding there is no active bleeding now. Suspect there may be some contribution to this from the external hemorrhoids colonoscopy can confirm return if he has further problems. Lab Data 10/26/24 08:34 10/26/24 08:34 Laboratory Results WBC 9.13 10^3/uL (3.29-11.43) 10/26/24 08:34 RBC 5.05 10^6/uL (3.85-5.65) 10/26/24 08:34 Hgb 14.80 g/dL (11.27-16.99) 10/26/24 08:34 Hct 45.8 % (37-53) 10/26/24 08:34 MCV 90.7 fl (82-101) 10/26/24 08:34 MCH 29.3 pg (27-33) 10/26/24 08:34 MCHC 32.3 g/dL (30-55) 10/26/24 08:34 RDW 13.2 % (12.1-15.1) 10/26/24 08:34 Plt Count 177 10^3/cmm (157-399) 10/26/24 08:34 MPV 12.6 fL (7.4-10.4) H 10/26/24 08:34 Neut % (Auto) 61.1 % 10/26/24 08: Lymph % (Auto) 28.6 % 10/26/24: Granite % (Auto) 7.6 % 10/26/24 08: Eos % (Auto) 1.9 % 10/26/24 08:34 Baso % (Auto) 0.5 % 10/26/24 08:34 Neut # (Auto) 5.58 10^3/uL (1.8-7.7) 10/26/24 08:34 Lymph # (Auto) 2.6 10^3/uL (0.8-4.8) 10/26/24 08:34 [place] # (Auto) 0.7 10^3/uL (0.2-0.9) 10/26/24 08:34 Eos # (Auto) 0.2 10^3/uL (0.0-0.8) 10/26/24 08:34 Baso # (Auto) 0.1 10^3/uL (0.0-0.1) 10/26/24 08:34 Nucleated RBC % (auto) 0 % 10/26/24: Nucleated RBCs # 0.0 /100WBC 10/26/24 08: PT 14.20 SECONDS (12.1-14.9) 10/26/24 08:34 INR 1.03 (0.8-1.2) 10/26/24 08:34 APTT 30.9 SECONDS (23.9-36.7) 10/26/24 08:34 Sodium 138 mmol/L (136-145) 10/26/24 08:34 Potassium 4.6 mmol/L (3.5-5.1) 10/26/24 08:34 Chloride 105 mmol/L (98-107) 10/26/24 08:34 Carbon Dioxide 23 mmol/L (22-29) 10/26/24 08:34 Anion Gap 14.6 (5-19) 10/26/24 08:34 BUN 12 mg/dL (6-20) 10/26/24 08:34 Creatinine 0.8 mg/dL (0.7-1.2) 10/26/24 08:34 GFR Calculation 104.5 mL/min (90-130) 10/26/24 08:34 Glucose 97 mg/dL (65-115) 10/26/24 08:34 Calculated Osmolality 286 mOsm/kg (285-295) 10/26/24 08:34 Calcium 9.0 mg/dL (8.5-10.5) 10/26/24 08:34 Total Bilirubin 0.4 mg/dL (0.15-1.2) 10/26/24 08:34 AST 17 U/L (0-40) 10/26/24 08:34 ALT 22 U/L (0-41) 10/26/24 08:34 Alkaline Phosphatase 67 U/L (40-130) 10/26/24 08:34 Total Protein 7.2 g/dL (6.6-8.7) 10/26/24 08:34 Albumin 4.3 g/dL (3.5-5.2) 10/26/24 08:34 Globulin 2.9 g/dL (1.3-4.6) 10/26/24 08:34 All radiology interpretation(s) finalized by discharge Discharge Plan Discharge Patient Disposition: Home Clinical Impression: Rectal bleed, External hemorrhoids, History of colon polyps Condition: Stable Prescriptions: No Action lisinopril 20 mg tablet 20 mg PO DAILY Qty: 30 6RF triamcinolone acetonide 0.1 % cream 1 applic topical DAILY PRN (Reason: itching) Qty: 30 6RF hydrocodone-acetaminophen 7.5-325 mg tablet 1 tab PO Q4H PRN (Reason: Pain) Discharge Orders: Discharge ED (Routine); Ordered 04/08/25 Ordered By: Ricardo Esparza Referrals: Nelson Wilkinson MD [Primary Care Provider] - Discharge Diet: Usual diet Discharge Activity: Resume usual activity Patient Instructions: Opioid Safety, Pain Management Activity Restrictions/Additional Instructions: Thank you for choosing [facility] for your healthcare needs today. It is very important that you follow up as instructed or that you return to the Emergency Department should you have concerns or if your condition changes or worsens in any way. You are seen emergency room with complaints of rectal bleeding. You have some several hemorrhoidal tags not appear thrombosed or irritated at this time. Since you have a history of previous colon polyp will refer you to general surgery for colonoscopy. Your hemoglobin is stable there is no evidence of active bleeding. Case management make arrangements for you to follow-up with general surgery. Print Language: Qatari Coding Level of Care Code ED Chief Underwriter for Tj Carranza
[2024-10-26 08:40] LABS: Basophils # 0.1 10^3/uL (0.0-0.1); Basophils % 0.5 %; Eosinophils # 0.2 10^3/uL (0.0-0.8); Eosinophils % 1.9 %; Hematocrit 45.8 % (37-53); Lymphocytes # 2.6 10^3/uL (0.8-4.8); Lymphocytes % 28.6 %; Mean Corpuscular HGB Conc 32.3 g/dL (30-55); Mean Corpuscular Hemoglobin 29.3 pg (27-33); Mean Corpuscular Volume 90.7 fl (82-101); Mean Platelet Volume 12.6 fL (7.4-10.4); Monocytes # 0.7 10^3/uL (0.2-0.9); Monocytes % 7.6 %; Neutrophils # 5.58 10^3/uL (1.8-7.7); Neutrophils % 61.1 %; Nucleated Red Blood Cells % 0 %; Platelet Count 177 10^3/cmm (157-399); Red Blood Count 5.05 10^6/uL (3.85-5.65); Red Cell Distribution Width 13.2 % (12.1-15.1); White Blood Count 9.13 10^3/uL (3.29-11.43)
[2024-10-26 08:58] LABS: Alanine Aminotransferase 22 U/L (0-41); Albumin Level 4.3 g/dL (3.5-5.2); Alkaline Phosphatase 67 U/L (40-130); Anion Gap 14.6 (5-19); Aspartate Amino Transferase 17 U/L (0-40); Blood Urea Nitrogen 12 mg/dL (6-20); Carbon Dioxide 23 mmol/L (22-29); Chloride 105 mmol/L (98-107); Creatinine Clr Calc Pharmacy 154.5953; Globulin 2.9 g/dL (1.3-4.6); Glomerular Filtration Rate 104.5 mL/min (90-130); Glucose 97 mg/dL (65-115); Osmolality Calculated 286 mOsm/kg (285-295); Potassium 4.6 mmol/L (3.5-5.1); Sodium 138 mmol/L (136-145); Total Bilirubin 0.4 mg/dL (0.15-1.2); Total Protein 7.2 g/dL (6.6-8.7)
[2024-10-26 09:21] LABS: INR 1.03 (0.8-1.2)
[2024-10-26 09:22] LABS: Partial Thromboplastin Time 30.9 SECONDS (23.9-36.7)
[2024-10-26 09:47] VITALS: BP 126/90; PULSE 81; O2SAT 96
--- NOTE | 2024-10-26 09:48 | DCPLANNER ---
messaged gen surg for er f/u
== END 2024-10-26 09:48 | disposition home or self-care (01) ==
PROVIDERS: Emergency Provider Family Medicine; PCP Family Medicine
DX: K62.5 Hemorrhage of anus and rectum (principal); K64.4 Residual hemorrhoidal skin tags; Z86.0100 Personal history of colon polyps, unspecified; I10 Essential (primary) hypertension
CPT/HCPCS: 80053; 85025; 85610; 85730; 99283